=== PATIENT | female | born 1940 | race Caucasian/White ===

== ENCOUNTER 2018-10-22 06:30 | Inpatient (IN) ==
[2018-10-22] MEDS ORDERED: *HR* HYDROcodone/Acet 5/325 mg TABLET PO PRN (10:51)
[2018-10-22] MEDS ORDERED: Naloxone 0.4 MG/ML INJ IVP PRN (10:51)
[2018-10-22] MEDS ORDERED: Acetaminophen 325 MG TABLET PO PRN (10:51)
[2018-10-22] MEDS ORDERED: Ondansetron 4 MG/2 ML VIAL IVP PRN (10:51)
[2018-10-22] MEDS ORDERED: 0.9 % Sodium Chloride 1,000 ML IVC SCH (11:30)
[2018-10-22] MEDS ORDERED: *HR* Labetalol 20 MG/4 ML SYRINGE IVP PRN (11:36)
[2018-10-22 13:23] LABS: Basophils # 0.1 K/mcL (0.0-0.2); Basophils % 0.4 %; Eosinophils % 0.1 %; Hematocrit 32.8 % (35.3-44.9); Hemoglobin 10.3 g/dL (11.5-15.4); Immature Granulocytes % 0.5 % (0-4); Lymphocytes # 1.9 K/mcL (0.6-4.6); Lymphocytes % 13.7 %; Mean Corpuscular HGB Conc 31.4 g/dL (31.6-35.5); Mean Corpuscular Hemoglobin 33.3 pg (28.0-33.3); Mean Corpuscular Volume 106.1 fL (83.0-100.0); Mean Platelet Volume 9.8 fL (9.4-12.4); Monocytes # 0.9 K/mcL (0.0-1.3); Monocytes % 6.5 %; Neutrophils # 10.7 K/mcL (1.6-8.9); Platelet Count 270 K/mcL (140-400); Red Blood Count 3.09 M/mcL (3.82-4.97); Red Cell Distribution Width 14.8 % (11.5-14.5); Segmented Neutrophils % 78.8 %; White Blood Count 13.5 K/mcL (4.3-11.1)
[2018-10-22 13:30] LABS: Prothrombin Time 10.9 Seconds (9.4-12.1)
[2018-10-22 13:42] LABS: Calcium 8.4 mg/dL (8.6-10.3); Potassium 4.5 mEq/L (3.5-5.1)
[2018-10-22] MEDS ORDERED: *HR* Dextrose 50 % in Water (Syg) 50 ML SYRINGE IVP PRN (13:51)
[2018-10-22] MEDS ORDERED: D5% in Water 1,000 ML IVC PRN (13:51)
[2018-10-22] MEDS ORDERED: Dextrose Gel 15 GM/37.5 ML TUBE PO PRN ×2 (13:51)
[2018-10-22] MEDS: Insulin LISPRO 300 UNITS/3 ML VIAL SQ SCH (16:51)
[2018-10-22] MEDS: *HR* Heparin 5,000 UNIT/ML VIAL SQ SCH (17:00)
[2018-10-22] MEDS ORDERED: Insulin LISPRO 300 UNITS/3 ML VIAL SQ SCH (21:00)
[2018-10-22] MEDS: Gabapentin 300 MG CAPSULE PO SCH (21:03)
[2018-10-22] MEDS: cloNIDine HCl 0.1 MG TABLET PO SCH (21:10)
[2018-10-23 02:29] LABS: Basophils # 0.1 K/mcL (0.0-0.2); Basophils % 0.5 %; Calcium 8.2 mg/dL (8.6-10.3); Eosinophils # 0.1 K/mcL (0.0-0.6); Eosinophils % 0.7 %; Hematocrit 30.3 % (35.3-44.9); Hemoglobin 9.7 g/dL (11.5-15.4); Immature Granulocytes % 0.4 % (0-4); Lymphocytes % 16.3 %; Magnesium 1.6 mg/dL (1.6-2.6); Mean Corpuscular Hemoglobin 33.3 pg (28.0-33.3); Mean Corpuscular Volume 104.1 fL (83.0-100.0); Mean Platelet Volume 10.5 fL (9.4-12.4); Monocytes # 0.8 K/mcL (0.0-1.3); Monocytes % 6.9 %; Neutrophils # 9.1 K/mcL (1.6-8.9); Platelet Count 274 K/mcL (140-400); Potassium 4.2 mEq/L (3.5-5.1); Red Blood Count 2.91 M/mcL (3.82-4.97); Red Cell Distribution Width 14.7 % (11.5-14.5); Segmented Neutrophils % 75.2 %; White Blood Count 12.1 K/mcL (4.3-11.1)
[2018-10-23] MEDS: *HR* Heparin 5,000 UNIT/ML VIAL SQ SCH (06:13)
[2018-10-23] MEDS ORDERED: Ondansetron 4 MG/2 ML VIAL ONE (07:11)
[2018-10-23] MEDS ORDERED: Lidocaine -MPF 4% 5 ML AMPUL ONE (07:11)
[2018-10-23] MEDS ORDERED: *HR* Succinylcholine 200 MG/10 ML VIAL IVP ONE (07:11)
[2018-10-23] MEDS ORDERED: Lidocaine -MPF 2% 2 ML VIAL ONE (07:11)
[2018-10-23] MEDS ORDERED: Dexamethasone 4 MG/ML VIAL ONE (07:11)
[2018-10-23] MEDS ORDERED: *HR* FentaNYL (PF) 100 MCG/2 ML VIAL ONE (07:13)
[2018-10-23] MEDS ORDERED: *HR* Propofol 200 MG/20 ML VIAL IVP ONE (07:13)
[2018-10-23] MEDS ORDERED: Acetaminophen IV 1,000 MG/100 ML INFUS..BTL ONE (07:22)
[2018-10-23] MEDS ORDERED: Famotidine 20 MG/2 ML VIAL ONE (07:22)
[2018-10-23] MEDS: Gabapentin 300 MG CAPSULE PO SCH ×2 (07:43→21:44)
[2018-10-23] MEDS ORDERED: Ringers Solution, Lactated 1,000 ML ONE ×2 (07:55→11:13)
[2018-10-23] MEDS ORDERED: Albuterol 2.5 MG/3 ML NEBULIZER IH ONE ×2 (08:21→11:36)
[2018-10-23] MEDS ORDERED: Albuterol 2.5 MG/3 ML NEBULIZER ONE (08:23)
[2018-10-23] MEDS ORDERED: Lidocaine -MPF 1% 5 ML AMPUL ONE (08:24)
[2018-10-23] MEDS ORDERED: Clindamycin 900 MG/50 ML 900 MG/50 ML IV.SOLN IVPB ONE (08:52)
[2018-10-23] MEDS ORDERED: Ondansetron 4 MG/2 ML VIAL IVP ONE (10:01)
[2018-10-23] MEDS ORDERED: Morphine Sulfate 2 MG/ML SYRINGE IVP PRN (10:01)
[2018-10-23] MEDS ORDERED: Dextrose Gel 15 GM/37.5 ML TUBE PO PRN ×2 (11:36)
[2018-10-23] MEDS ORDERED: *HR* Labetalol 20 MG/4 ML SYRINGE IVP PRN (11:36)
[2018-10-23] MEDS ORDERED: Ondansetron 4 MG/2 ML VIAL IVP PRN (11:36)
[2018-10-23] MEDS ORDERED: Naloxone 0.4 MG/ML INJ IVP PRN (11:36)
[2018-10-23] MEDS ORDERED: 0.9 % Sodium Chloride 1,000 ML IVC SCH (11:36)
[2018-10-23] MEDS ORDERED: *HR* Dextrose 50 % in Water (Syg) 50 ML SYRINGE IVP PRN (11:36)
[2018-10-23] MEDS ORDERED: D5% in Water 1,000 ML IVC PRN (11:36)
[2018-10-23] MEDS ORDERED: Acetaminophen 325 MG TABLET PO PRN (11:36)
[2018-10-23] MEDS: Clindamycin 900 MG/50 ML 900 MG/50 ML IV.SOLN IVPB SCH ×2 (17:05→23:29)
[2018-10-23] MEDS: Insulin LISPRO 300 UNITS/3 ML VIAL SQ SCH ×3 (17:05→21:44)
[2018-10-23] MEDS ORDERED: Ipratropium/Albuterol Neb 3 ML IH PRN (18:15)
[2018-10-23] MEDS: cloNIDine HCl 0.1 MG TABLET PO SCH ×2 (19:17→21:44)
[2018-10-23] MEDS: *HR* HYDROcodone/Acet 5/325 mg TABLET PO PRN (21:44)
[2018-10-24 07:50] LABS: Basophils % 0.1 %; Hematocrit 25.7 % (35.3-44.9); Hemoglobin 8.2 g/dL (11.5-15.4); Immature Granulocytes % 0.5 % (0-4); Lymphocytes # 0.9 K/mcL (0.6-4.6); Lymphocytes % 5.9 %; Mean Corpuscular HGB Conc 31.9 g/dL (31.6-35.5); Mean Corpuscular Hemoglobin 32.8 pg (28.0-33.3); Mean Corpuscular Volume 102.8 fL (83.0-100.0); Mean Platelet Volume 10.5 fL (9.4-12.4); Monocytes # 0.9 K/mcL (0.0-1.3); Monocytes % 6.1 %; Neutrophils # 13.3 K/mcL (1.6-8.9); Platelet Count 219 K/mcL (140-400); Red Cell Distribution Width 14.6 % (11.5-14.5); Segmented Neutrophils % 87.4 %; White Blood Count 15.2 K/mcL (4.3-11.1)
[2018-10-24 08:03] LABS: Potassium 4.2 mEq/L (3.5-5.1)
[2018-10-24] MEDS: Insulin LISPRO 300 UNITS/3 ML VIAL SQ SCH ×4 (08:25→20:45)
[2018-10-24] MEDS: Gabapentin 300 MG CAPSULE PO SCH ×2 (09:40→20:44)
[2018-10-24] MEDS: cloNIDine HCl 0.1 MG TABLET PO SCH ×2 (09:40→20:44)
[2018-10-24] MEDS: *HR* Enoxaparin 30 MG/0.3 ML SYRINGE SQ SCH (09:41)
[2018-10-24] MEDS: *HR* HYDROcodone/Acet 5/325 mg TABLET PO PRN ×2 (11:30→19:34)
[2018-10-25 05:18] LABS: Basophils % 0.1 %; Eosinophils # 0.1 K/mcL (0.0-0.6); Eosinophils % 0.4 %; Hematocrit 23.8 % (35.3-44.9); Hemoglobin 7.5 g/dL (11.5-15.4); Immature Granulocytes % 0.7 % (0-4); Lymphocytes # 2.5 K/mcL (0.6-4.6); Lymphocytes % 17.7 %; Mean Corpuscular HGB Conc 31.5 g/dL (31.6-35.5); Mean Corpuscular Hemoglobin 32.9 pg (28.0-33.3); Mean Corpuscular Volume 104.4 fL (83.0-100.0); Mean Platelet Volume 10.6 fL (9.4-12.4); Neutrophils # 10.4 K/mcL (1.6-8.9); Platelet Count 209 K/mcL (140-400); Red Blood Count 2.28 M/mcL (3.82-4.97); Segmented Neutrophils % 74.1 %; White Blood Count 14.1 K/mcL (4.3-11.1)
[2018-10-25] MEDS: Insulin LISPRO 300 UNITS/3 ML VIAL SQ SCH ×2 (07:55→11:15)
[2018-10-25] MEDS: Gabapentin 300 MG CAPSULE PO SCH (09:59)
[2018-10-25] MEDS: *HR* Enoxaparin 30 MG/0.3 ML SYRINGE SQ SCH (09:59)
[2018-10-25] MEDS: cloNIDine HCl 0.1 MG TABLET PO SCH (09:59)
[2018-10-25] MEDS: *HR* HYDROcodone/Acet 5/325 mg TABLET PO PRN (10:52)
[2018-10-25 12:46] VITALS: BP 117/72
== END 2018-10-25 16:17 | DRG 480 ==
LOC: 3NENU → SUATTDRO 11:57
PROVIDERS: ADMIT Internal Medicine; ATTEND Internal Medicine

== ENCOUNTER 2019-12-11 15:45 | Inpatient (IN) ==
[2019-12-11] MEDS ORDERED: Morphine Sulfate 2 MG/ML SYRINGE IVP PRN (19:57)
[2019-12-11] MEDS ORDERED: Ondansetron 4 MG/2 ML VIAL IVP PRN (20:37)
[2019-12-11] MEDS ORDERED: Naloxone 0.4 MG/ML INJ IVP PRN (20:37)
[2019-12-11] MEDS ORDERED: D5% in Water 1,000 ML IVC PRN (20:41)
[2019-12-11] MEDS ORDERED: Dextrose Gel 15 GM/37.5 ML TUBE PO PRN ×2 (20:41)
[2019-12-11] MEDS ORDERED: *HR* Dextrose 50 % in Water (Vial) 50 ML VIAL IVP PRN (20:41)
[2019-12-12] MEDS: Insulin LISPRO 300 UNITS/3 ML VIAL SQ SCH ×4 (00:38→18:02)
[2019-12-12 01:49] LABS: Hematocrit 34.5 % (35.3-44.9); Hemoglobin 10.8 g/dL (11.5-15.4); Mean Corpuscular HGB Conc 31.3 g/dL (31.6-35.5); Mean Corpuscular Hemoglobin 31.5 pg (28.0-33.3); Mean Corpuscular Volume 100.6 fL (83.0-100.0); Mean Platelet Volume 10.5 fL (9.4-12.4); Platelet Count 284 K/mcL (140-400); Red Blood Count 3.43 M/mcL (3.82-4.97); Red Cell Distribution Width 13.8 % (11.5-14.5); White Blood Count 14.4 K/mcL (4.3-11.1)
[2019-12-12 02:00] LABS: Prothrombin Time 11.5 Seconds (9.4-12.1)
[2019-12-12 02:03] LABS: Activated Partial Thrombo Time 28.7 Seconds (26.0-36.0)
[2019-12-12 02:05] LABS: Calcium 8.8 mg/dL (8.6-10.3); Potassium 3.9 mEq/L (3.5-5.1)
[2019-12-12] MEDS: Morphine Sulfate 2 MG/ML SYRINGE IVP PRN ×2 (04:15→08:08)
[2019-12-12] MEDS: cilostazoL 100 MG TABLET PO SCH ×2 (08:09→09:00)
[2019-12-12] MEDS: cloNIDine HCL 0.1 MG TABLET PO SCH ×3 (08:09→20:06)
[2019-12-12] MEDS: amLODIPine 5 MG TABLET PO SCH ×2 (08:09→09:00)
[2019-12-12 08:21] LABS: Estimated Average Glucose 146 mg/dl
[2019-12-13] MEDS: Insulin LISPRO 300 UNITS/3 ML VIAL SQ SCH ×4 (00:07→22:51)
[2019-12-13] MEDS ORDERED: Acetaminophen IV 500 MG/50 ML INFUS..BTL IVPB ONE (01:00)
[2019-12-13 05:18] LABS: Basophils # 0.1 K/mcL (0.0-0.2); Basophils % 0.3 %; Eosinophils # 0.1 K/mcL (0.0-0.6); Eosinophils % 0.3 %; Hematocrit 34.6 % (35.3-44.9); Hemoglobin 10.7 g/dL (11.5-15.4); Immature Granulocytes % 0.5 % (0-4); Lymphocytes # 1.6 K/mcL (0.6-4.6); Lymphocytes % 10.1 %; Mean Corpuscular HGB Conc 30.9 g/dL (31.6-35.5); Mean Corpuscular Hemoglobin 31.2 pg (28.0-33.3); Mean Corpuscular Volume 100.9 fL (83.0-100.0); Mean Platelet Volume 10.8 fL (9.4-12.4); Monocytes # 1.1 K/mcL (0.0-1.3); Monocytes % 7.2 %; Neutrophils # 12.8 K/mcL (1.6-8.9); Platelet Count 257 K/mcL (140-400); Red Blood Count 3.43 M/mcL (3.82-4.97); Red Cell Distribution Width 13.8 % (11.5-14.5); Segmented Neutrophils % 81.6 %; White Blood Count 15.6 K/mcL (4.3-11.1)
[2019-12-13 05:37] LABS: Calcium 9.4 mg/dL (8.6-10.3); Potassium 3.9 mEq/L (3.5-5.1)
[2019-12-13] MEDS ORDERED: *HR* Metformin 500 MG TABLET PO SCH (08:00)
[2019-12-13] MEDS: cloNIDine HCL 0.1 MG TABLET PO SCH ×2 (08:29→22:19)
[2019-12-13] MEDS: amLODIPine 5 MG TABLET PO SCH (08:29)
[2019-12-13] MEDS: cilostazoL 100 MG TABLET PO SCH (08:30)
[2019-12-13 13:10] LABS: Albumin 3.4 g/dL (3.5-5.7); Bilirubin,Direct 0.2 mg/dL (0.0-0.2); Bilirubin,Indirect 0.5 mg/dL (0.0-1.0); Bilirubin,Total 0.7 mg/dL (0.3-1.0); Globulin 3.5 g/dL (2.4-3.5); Total Protein 6.9 g/dL (6.4-8.9)
[2019-12-13] MEDS ORDERED: *HR* HYDROmorphone (PF) 1 MG/ML SYRINGE IVP ONE ×2 (14:11→19:22)
[2019-12-13] MEDS ORDERED: *HR* Propofol 200 MG/20 ML VIAL IVP ONE (16:38)
[2019-12-13] MEDS ORDERED: *HR* FentaNYL (PF) 100 MCG/2 ML VIAL ONE (16:39)
[2019-12-13] MEDS ORDERED: Lidocaine -MPF 2% 2 ML VIAL ONE (16:40)
[2019-12-13] MEDS ORDERED: Ondansetron 4 MG/2 ML VIAL ONE (16:40)
[2019-12-13] MEDS ORDERED: Dexamethasone 4 MG/ML VIAL ONE (16:40)
[2019-12-13] MEDS ORDERED: Clindamycin 900 MG/50 ML 900 MG/50 ML IV.SOLN IVPB ONE ×2 (16:52→16:53)
[2019-12-13] MEDS ORDERED: *HR* Promethazine 25 MG/ML VIAL IVP PRN ×2 (16:55→19:22)
[2019-12-13] MEDS ORDERED: *HR* Labetalol 20 MG/4 ML SYRINGE IVP PRN ×2 (16:55→19:22)
[2019-12-13] MEDS ORDERED: Ondansetron 4 MG/2 ML VIAL IVP PRN ×3 (16:55→19:22)
[2019-12-13] MEDS ORDERED: *HR* PHENYLEPHRINE 1,000 MCG/10 ML SYRINGE IVP ONE (17:17)
[2019-12-13] MEDS: *HR* HYDROmorphone PF 0.5 MG/0.5 ML SYRINGE IVP PRN ×2 (18:26→18:36)
[2019-12-13] MEDS ORDERED: D5% in Water 1,000 ML IVC PRN (19:22)
[2019-12-13] MEDS ORDERED: *HR* HYDROmorphone PF 0.5 MG/0.5 ML SYRINGE IVP PRN (19:22)
[2019-12-13] MEDS ORDERED: Dextrose Gel 15 GM/37.5 ML TUBE PO PRN ×2 (19:22)
[2019-12-13] MEDS ORDERED: Naloxone 0.4 MG/ML INJ IVP PRN (19:22)
[2019-12-13] MEDS ORDERED: *HR* Dextrose 50 % in Water (Vial) 50 ML VIAL IVP PRN (19:22)
[2019-12-13] MEDS ORDERED: *HR* Metoprolol 5 MG/5 ML VIAL IVP ONE (22:10)
[2019-12-14] MEDS: Clindamycin 900 MG/50 ML 900 MG/50 ML IV.SOLN IVPB SCH ×2 (00:58→09:36)
[2019-12-14] MEDS ORDERED: Acetaminophen IV 500 MG/50 ML INFUS..BTL IVPB ONE (01:09)
[2019-12-14] MEDS: Insulin LISPRO 300 UNITS/3 ML VIAL SQ SCH ×4 (01:11→19:19)
[2019-12-14] MEDS ORDERED: Levalbuterol Neb 1.25 MG/3 ML IH PRN (01:26)
[2019-12-14 06:25] LABS: Basophils % 0.1 %; Hematocrit 30.5 % (35.3-44.9); Hemoglobin 9.5 g/dL (11.5-15.4); Immature Granulocytes % 0.6 % (0-4); Lymphocytes # 0.6 K/mcL (0.6-4.6); Lymphocytes % 3.3 %; Mean Corpuscular HGB Conc 31.1 g/dL (31.6-35.5); Mean Corpuscular Hemoglobin 31.8 pg (28.0-33.3); Mean Platelet Volume 11.2 fL (9.4-12.4); Monocytes # 0.7 K/mcL (0.0-1.3); Neutrophils # 16.6 K/mcL (1.6-8.9); Platelet Count 239 K/mcL (140-400); Red Blood Count 2.99 M/mcL (3.82-4.97); Red Cell Distribution Width 13.9 % (11.5-14.5)
[2019-12-14 06:36] LABS: Albumin 3.3 g/dL (3.5-5.7); Albumin/Globulin Ratio 0.9 (1.1-2.2); Bilirubin,Total 0.6 mg/dL (0.3-1.0); Calcium 9.1 mg/dL (8.6-10.3); Globulin 3.5 g/dL (2.4-3.5); Potassium 3.7 mEq/L (3.5-5.1); Total Protein 6.8 g/dL (6.4-8.9)
[2019-12-14] MEDS: Aspirin Enteric Coated 325 MG Tablet PO SCH (09:33)
[2019-12-14] MEDS: cloNIDine HCL 0.1 MG TABLET PO SCH ×2 (09:34→19:52)
[2019-12-14] MEDS: amLODIPine 5 MG TABLET PO SCH (09:34)
[2019-12-14] MEDS: cilostazoL 100 MG TABLET PO SCH (09:35)
[2019-12-14 11:16] LABS: Bacteria,Urine Few per hpf (None-Few); Bilirubin,Urine Negative (Negative); Blood,Urine Moderate (Negative); Clarity,Urine Clear (Clear); Color,Urine Yellow (Yellow); Glucose,Urine (UA) Normal (Normal); Hyaline Casts,Urine Few per lpf (None Seen); Ketones,Urine Negative (Negative); Leukocyte Esterase,Urine Trace (Negative); Mucus,Urine Few per lpf (None-Few); Nitrite,Urine Negative (Negative); PH,Urine 5.5 pH Units (5.0-8.0); Protein,Urine 70 mg/dL (Neg-Trace); RBC,Urine 0-3 per hpf (0-3); Specific Gravity,Urine 1.021 (1.010-1.025); Urobilinogen,Urine Normal (Normal)
[2019-12-14] MEDS: 0.9 % Sodium Chloride 1,000 ML IVC SCH (14:46)
[2019-12-14] MEDS: Acetaminophen IV 1,000 MG/100 ML INFUS..BTL IVPB SCH ×2 (14:47→21:07)
[2019-12-14] MEDS ORDERED: levoFLOXacin 750 MG/150 ML 750 MG/150 ML BAG IVPB SCH (16:00)
[2019-12-14] MEDS: Nicotine 14 MG PATCH.TD24 TD SCH (19:34)
[2019-12-14] MEDS: MetroNIDAZOLE 500 MG/100 ML 500 MG/100 ML BAG IVPB SCH ×2 (19:34→23:45)
[2019-12-15] MEDS: Insulin LISPRO 300 UNITS/3 ML VIAL SQ SCH ×4 (01:45→19:22)
[2019-12-15] MEDS: Acetaminophen IV 1,000 MG/100 ML INFUS..BTL IVPB SCH ×3 (04:14→21:09)
[2019-12-15] MEDS: 0.9 % Sodium Chloride 1,000 ML IVC SCH (04:18)
[2019-12-15 05:59] LABS: Basophils % 0.1 %; Hematocrit 28.9 % (35.3-44.9); Hemoglobin 8.8 g/dL (11.5-15.4); Immature Granulocytes % 1.1 % (0-4); Lymphocytes # 1.1 K/mcL (0.6-4.6); Lymphocytes % 6.7 %; Mean Corpuscular HGB Conc 30.4 g/dL (31.6-35.5); Mean Corpuscular Hemoglobin 31.1 pg (28.0-33.3); Mean Corpuscular Volume 102.1 fL (83.0-100.0); Mean Platelet Volume 11.1 fL (9.4-12.4); Neutrophils # 13.6 K/mcL (1.6-8.9); Nucleated Red Blood Cells 0.1 /100 WBC (0); Platelet Count 234 K/mcL (140-400); Red Blood Count 2.83 M/mcL (3.82-4.97); Red Cell Distribution Width 14.3 % (11.5-14.5); Segmented Neutrophils % 86.1 %; White Blood Count 15.8 K/mcL (4.3-11.1)
[2019-12-15 06:20] LABS: BUN/Creatinine Ratio 32 (6-26); Blood Urea Nitrogen 33 mg/dL (8-23); Calcium 8.6 mg/dL (8.6-10.3); Carbon Dioxide 24 mEq/L (23-29); Chloride 113 mEq/L (98-107); Glucose 110 mg/dL (70-105); Osmolality,Calculated 310 (280-300); Potassium 3.5 mEq/L (3.5-5.1); Sodium 146 mEq/L (136-145); eGFR For African Americans > 60 (> 60); eGFR For Non-African Americans 52 (> 60)
[2019-12-15] MEDS: Aspirin Enteric Coated 325 MG Tablet PO SCH (09:54)
[2019-12-15] MEDS: Nicotine 14 MG PATCH.TD24 TD SCH (09:54)
[2019-12-15] MEDS: MetroNIDAZOLE 500 MG/100 ML 500 MG/100 ML BAG IVPB SCH ×3 (09:54→23:39)
[2019-12-15] MEDS: amLODIPine 5 MG TABLET PO SCH (09:55)
[2019-12-15] MEDS: cloNIDine HCL 0.1 MG TABLET PO SCH ×2 (09:55→19:36)
[2019-12-15] MEDS: cilostazoL 100 MG TABLET PO SCH (09:55)
[2019-12-15] MEDS ORDERED: D5% in 0.45% NACL w KCl 20 MEQ/1,000 ML MLS IVC SCH (10:30)
[2019-12-15] MEDS ORDERED: Thiamine (B-1) 100 MG in 0.9 % Sodium Chloride 50 ML IVPB STA (12:19)
[2019-12-15 13:29] LABS: Folate 4.9 ng/mL (3.0-16.0)
[2019-12-15 15:15] LABS: Thyroid Stimulating Hormone 1.446 mcIU/mL (0.340-5.600)
[2019-12-15] MEDS ORDERED: levETIRAcetam 1,000 MG in 0.9 % Sodium Chloride 100 ML IVPB ONE (17:26)
[2019-12-15] MEDS: Acyclovir 500 MG in D5% in Water 250 ML IVPB SCH (19:21)
[2019-12-15 19:59] LABS: Appearance,CSF Clear (Clear)
[2019-12-15 20:06] LABS: Red Blood Cell,CSF < 2000 RBC/mcL
[2019-12-15 20:11] LABS: Glucose,CSF 81 mg/dL (40-70); Total Protein,CSF 44 mg/dL (15-45)
[2019-12-15] MEDS ORDERED: QUEtiapine Fumarate 25 MG TABLET PO SCH (21:00)
[2019-12-15] MEDS ORDERED: *HR* Metoprolol 5 MG/5 ML VIAL IVP ONE ×3 (23:53→23:56)
[2019-12-16] MEDS: Insulin LISPRO 300 UNITS/3 ML VIAL SQ SCH ×5 (00:15→23:36)
[2019-12-16 00:50] LABS: Basophils % 0.1 %; Eosinophils % 0.2 %; Hematocrit 29.1 % (35.3-44.9); Hemoglobin 8.9 g/dL (11.5-15.4); Immature Granulocytes % 0.6 % (0-4); Lymphocytes # 1.8 K/mcL (0.6-4.6); Lymphocytes % 13.2 %; Mean Corpuscular HGB Conc 30.6 g/dL (31.6-35.5); Mean Corpuscular Hemoglobin 31.9 pg (28.0-33.3); Mean Corpuscular Volume 104.3 fL (83.0-100.0); Mean Platelet Volume 11.1 fL (9.4-12.4); Monocytes % 6.8 %; Platelet Count 224 K/mcL (140-400); Red Blood Count 2.79 M/mcL (3.82-4.97); Red Cell Distribution Width 14.4 % (11.5-14.5); Segmented Neutrophils % 79.1 %
[2019-12-16] MEDS: DilTIAZem 50 MG/50 ML IV.SOLN IVC SCH ×4 (00:58→16:07)
[2019-12-16 01:08] LABS: BUN/Creatinine Ratio 29 (6-26); Blood Urea Nitrogen 30 mg/dL (8-23); Calcium 8.1 mg/dL (8.6-10.3); Carbon Dioxide 22 mEq/L (23-29); Chloride 115 mEq/L (98-107); Glucose 116 mg/dL (70-105); Osmolality,Calculated 311 (280-300); Potassium 3.4 mEq/L (3.5-5.1); Sodium 147 mEq/L (136-145); eGFR For African Americans > 60 (> 60); eGFR For Non-African Americans 51 (> 60)
[2019-12-16 01:10] LABS: Magnesium 1.7 mg/dL (1.6-2.6); Phosphorous 2.3 mg/dL (2.7-4.5)
[2019-12-16] MEDS: Acyclovir 500 MG in D5% in Water 250 ML IVPB SCH ×3 (03:23→18:28)
[2019-12-16] MEDS: Acetaminophen IV 1,000 MG/100 ML INFUS..BTL IVPB SCH ×3 (04:47→19:41)
[2019-12-16] MEDS ORDERED: Perflutren Lipid Microsphere 1.3 ML in 0.9 % Sodium Chloride 8.7 ML IVP PRN (05:21)
[2019-12-16] MEDS: Nicotine 14 MG PATCH.TD24 TD SCH (08:38)
[2019-12-16] MEDS: MetroNIDAZOLE 500 MG/100 ML 500 MG/100 ML BAG IVPB SCH ×2 (08:38→15:56)
[2019-12-16] MEDS: cloNIDine HCL 0.1 MG TABLET PO SCH ×2 (08:49→19:40)
[2019-12-16] MEDS: amLODIPine 5 MG TABLET PO SCH (08:49)
[2019-12-16] MEDS: Aspirin Enteric Coated 325 MG Tablet PO SCH (08:49)
[2019-12-16] MEDS: Thiamine (B-1) 100 MG in 0.9 % Sodium Chloride 50 ML IVPB SCH (09:25)
[2019-12-16] MEDS ORDERED: *HR* Metoprolol 5 MG/5 ML VIAL IVP SCH (11:36)
[2019-12-16] MEDS ORDERED: Cyanocobalamin (B-12) 1,000 MCG/ML VIAL IM ONE (11:51)
[2019-12-16] MEDS: levoFLOXacin 750 MG/150 ML 750 MG/150 ML BAG IVPB SCH (18:27)
[2019-12-16 19:46] LABS: Basophils % 0.2 %; Eosinophils # 0.1 K/mcL (0.0-0.6); Eosinophils % 1.2 %; Hematocrit 26.8 % (35.3-44.9); Hemoglobin 8.2 g/dL (11.5-15.4); Immature Granulocytes % 0.5 % (0-4); Lymphocytes # 1.8 K/mcL (0.6-4.6); Lymphocytes % 15.7 %; Mean Corpuscular HGB Conc 30.6 g/dL (31.6-35.5); Mean Corpuscular Hemoglobin 31.2 pg (28.0-33.3); Mean Corpuscular Volume 101.9 fL (83.0-100.0); Mean Platelet Volume 10.6 fL (9.4-12.4); Monocytes # 0.7 K/mcL (0.0-1.3); Neutrophils # 8.9 K/mcL (1.6-8.9); Platelet Count 196 K/mcL (140-400); Red Blood Count 2.63 M/mcL (3.82-4.97); Red Cell Distribution Width 14.3 % (11.5-14.5); Segmented Neutrophils % 76.4 %; White Blood Count 11.6 K/mcL (4.3-11.1)
[2019-12-16] MEDS: levETIRAcetam 750 MG in 0.9 % Sodium Chloride 100 ML IVPB SCH (21:59)
[2019-12-17] MEDS: MetroNIDAZOLE 500 MG/100 ML 500 MG/100 ML BAG IVPB SCH ×4 (00:39→23:55)
[2019-12-17] MEDS: Acyclovir 500 MG in D5% in Water 250 ML IVPB SCH ×2 (02:44→10:06)
[2019-12-17 03:19] LABS: Hematocrit 29.2 % (35.3-44.9); Hemoglobin 8.8 g/dL (11.5-15.4); Mean Corpuscular HGB Conc 30.1 g/dL (31.6-35.5); Mean Corpuscular Hemoglobin 31.1 pg (28.0-33.3); Mean Corpuscular Volume 103.2 fL (83.0-100.0); Mean Platelet Volume 11.5 fL (9.4-12.4); Platelet Count 222 K/mcL (140-400); Red Blood Count 2.83 M/mcL (3.82-4.97); Red Cell Distribution Width 14.2 % (11.5-14.5); White Blood Count 12.5 K/mcL (4.3-11.1)
[2019-12-17 03:36] LABS: BUN/Creatinine Ratio 29 (6-26); Blood Urea Nitrogen 23 mg/dL (8-23); Carbon Dioxide 21 mEq/L (23-29); Chloride 114 mEq/L (98-107); Glucose 91 mg/dL (70-105); Osmolality,Calculated 301 (280-300); Potassium 3.2 mEq/L (3.5-5.1); Sodium 144 mEq/L (136-145); eGFR For African Americans > 60 (> 60); eGFR For Non-African Americans > 60 (> 60)
[2019-12-17] MEDS: Acetaminophen IV 1,000 MG/100 ML INFUS..BTL IVPB SCH ×3 (04:12→19:33)
[2019-12-17] MEDS: DilTIAZem 50 MG/50 ML IV.SOLN IVC SCH ×2 (04:13→13:25)
[2019-12-17] MEDS: Insulin LISPRO 300 UNITS/3 ML VIAL SQ SCH ×3 (05:30→17:44)
[2019-12-17] MEDS: Nicotine 14 MG PATCH.TD24 TD SCH (07:29)
[2019-12-17] MEDS: cloNIDine HCL 0.1 MG TABLET PO SCH ×2 (07:30→19:42)
[2019-12-17] MEDS: levETIRAcetam 750 MG in 0.9 % Sodium Chloride 100 ML IVPB SCH ×2 (07:30→20:16)
[2019-12-17] MEDS: Aspirin Enteric Coated 325 MG Tablet PO SCH (07:30)
[2019-12-17] MEDS: Thiamine (B-1) 100 MG in 0.9 % Sodium Chloride 50 ML IVPB SCH (07:35)
[2019-12-17] MEDS: amLODIPine 5 MG TABLET PO SCH (09:00)
[2019-12-17] MEDS ORDERED: *HR* Heparin 5,000 UNIT/ML VIAL IVP ONE ×2 (10:07→19:27)
[2019-12-17 10:49] LABS: INR 1.2; Prothrombin Time 13.8 Seconds (9.4-12.1)
[2019-12-17 10:51] LABS: Activated Partial Thrombo Time 28.5 Seconds (26.0-36.0)
[2019-12-17 10:52] LABS: Heparin anti-factor XA UFH < 0.04 IU/mL (0.30-0.70)
[2019-12-17] MEDS: Heparin 25,000UNIT/250ML 1/2NS 25,000 UNIT/250 ML IV.SOLN IVC SCH (11:39)
[2019-12-17] MEDS ORDERED: Potassium Chloride 20 MEQ, Lidocaine 1% 2 ML in 0.9 % Sodium Chloride 250 ML IVPB ONE (13:43)
[2019-12-17] MEDS ORDERED: Vancomycin 500 MG in 0.9 % Sodium Chloride Mini Bag 100 ML IVPB ONE (19:00)
[2019-12-17] MEDS ORDERED: *HR* Heparin 5,000 UNIT/ML VIAL IVP PRN (19:27)
[2019-12-17 20:09] LABS: Hematocrit 29.9 % (35.3-44.9); Mean Corpuscular HGB Conc 30.1 g/dL (31.6-35.5); Mean Corpuscular Volume 103.1 fL (83.0-100.0); Mean Platelet Volume 11.2 fL (9.4-12.4); Platelet Count 219 K/mcL (140-400); Red Cell Distribution Width 14.4 % (11.5-14.5); White Blood Count 13.5 K/mcL (4.3-11.1)
[2019-12-17 20:14] LABS: Heparin anti-factor XA UFH 0.23 IU/mL (0.30-0.70); INR 1.2; Prothrombin Time 13.4 Seconds (9.4-12.1)
[2019-12-17] MEDS: *HR* Heparin 5,000 UNIT/ML VIAL IVP PRN (20:15)
[2019-12-18] MEDS: Insulin LISPRO 300 UNITS/3 ML VIAL SQ SCH ×4 (00:02→17:54)
[2019-12-18 02:09] LABS: Basophils % 0.3 %; Eosinophils # 0.4 K/mcL (0.0-0.6); Eosinophils % 3.1 %; Hematocrit 29.2 % (35.3-44.9); Hemoglobin 9.1 g/dL (11.5-15.4); Immature Granulocytes % 0.8 % (0-4); Lymphocytes # 1.7 K/mcL (0.6-4.6); Lymphocytes % 14.6 %; Mean Corpuscular HGB Conc 30.3 g/dL (31.6-35.5); Mean Corpuscular HGB Conc 30.8 g/dL (31.6-35.5); Mean Corpuscular Hemoglobin 31.1 pg (28.0-33.3); Mean Corpuscular Hemoglobin 31.9 pg (28.0-33.3); Mean Corpuscular Volume 102.4 fL (83.0-100.0); Mean Corpuscular Volume 103.5 fL (83.0-100.0); Mean Platelet Volume 11.4 fL (9.4-12.4); Mean Platelet Volume 11.6 fL (9.4-12.4); Monocytes # 0.7 K/mcL (0.0-1.3); Monocytes % 5.5 %; Platelet Count 209 K/mcL (140-400); Platelet Count 212 K/mcL (140-400); Red Blood Count 2.82 M/mcL (3.82-4.97); Red Blood Count 2.93 M/mcL (3.82-4.97); Red Cell Distribution Width 14.3 % (11.5-14.5); Red Cell Distribution Width 14.4 % (11.5-14.5); Segmented Neutrophils % 75.7 %; White Blood Count 11.9 K/mcL (4.3-11.1); White Blood Count 12.2 K/mcL (4.3-11.1)
[2019-12-18 02:26] LABS: BUN/Creatinine Ratio 23 (6-26); Blood Urea Nitrogen 18 mg/dL (8-23); Carbon Dioxide 21 mEq/L (23-29); Chloride 114 mEq/L (98-107); Glucose 100 mg/dL (70-105); Potassium 3.5 mEq/L (3.5-5.1); Sodium 144 mEq/L (136-145); eGFR For African Americans > 60 (> 60); eGFR For Non-African Americans > 60 (> 60)
[2019-12-18 02:27] LABS: Calcium 8.1 mg/dL (8.6-10.3); Osmolality,Calculated 300 (280-300)
[2019-12-18] MEDS: Acetaminophen IV 1,000 MG/100 ML INFUS..BTL IVPB SCH ×3 (03:03→19:44)
[2019-12-18] MEDS: levETIRAcetam 750 MG in 0.9 % Sodium Chloride 100 ML IVPB SCH ×2 (08:53→21:57)
[2019-12-18] MEDS: MetroNIDAZOLE 500 MG/100 ML 500 MG/100 ML BAG IVPB SCH ×3 (08:54→23:43)
[2019-12-18] MEDS: Nicotine 14 MG PATCH.TD24 TD SCH (09:02)
[2019-12-18] MEDS: Aspirin Enteric Coated 325 MG Tablet PO SCH (09:02)
[2019-12-18] MEDS: cloNIDine HCL 0.1 MG TABLET PO SCH ×2 (09:03→20:54)
[2019-12-18] MEDS: amLODIPine 5 MG TABLET PO SCH (09:03)
[2019-12-18] MEDS: Heparin 25,000UNIT/250ML 1/2NS 25,000 UNIT/250 ML IV.SOLN IVC SCH (13:13)
[2019-12-18] MEDS: *HR* Metoprolol 5 MG/5 ML VIAL IVP SCH ×3 (13:14→23:44)
[2019-12-18] MEDS: DilTIAZem 50 MG/50 ML IV.SOLN IVC SCH (13:20)
[2019-12-18] MEDS: levoFLOXacin 750 MG/150 ML 750 MG/150 ML BAG IVPB SCH (17:55)
[2019-12-19] MEDS: Insulin LISPRO 300 UNITS/3 ML VIAL SQ SCH ×4 (00:07→16:53)
[2019-12-19 01:14] LABS: Basophils % 0.3 %; Eosinophils # 0.2 K/mcL (0.0-0.6); Eosinophils % 2.1 %; Hematocrit 28.8 % (35.3-44.9); Hemoglobin 8.8 g/dL (11.5-15.4); Immature Granulocytes % 1.4 % (0-4); Lymphocytes # 1.6 K/mcL (0.6-4.6); Lymphocytes % 14.8 %; Mean Corpuscular HGB Conc 30.6 g/dL (31.6-35.5); Mean Corpuscular Hemoglobin 30.9 pg (28.0-33.3); Mean Corpuscular Volume 101.1 fL (83.0-100.0); Mean Platelet Volume 11.7 fL (9.4-12.4); Monocytes # 0.6 K/mcL (0.0-1.3); Monocytes % 5.6 %; Neutrophils # 8.3 K/mcL (1.6-8.9); Nucleated Red Blood Cells 0.2 /100 WBC (0); Platelet Count 227 K/mcL (140-400); Red Blood Count 2.85 M/mcL (3.82-4.97); Red Cell Distribution Width 14.3 % (11.5-14.5); Segmented Neutrophils % 75.8 %; White Blood Count 10.9 K/mcL (4.3-11.1)
[2019-12-19 01:28] LABS: BUN/Creatinine Ratio 24 (6-26); Blood Urea Nitrogen 15 mg/dL (8-23); Calcium 7.9 mg/dL (8.6-10.3); Carbon Dioxide 19 mEq/L (23-29); Chloride 111 mEq/L (98-107); Glucose 89 mg/dL (70-105); Magnesium 1.6 mg/dL (1.6-2.6); Osmolality,Calculated 290 (280-300); Potassium 3.6 mEq/L (3.5-5.1); Sodium 140 mEq/L (136-145); eGFR For African Americans > 60 (> 60); eGFR For Non-African Americans > 60 (> 60)
[2019-12-19] MEDS: *HR* Heparin 5,000 UNIT/ML VIAL IVP PRN (01:48)
[2019-12-19] MEDS: Acetaminophen IV 1,000 MG/100 ML INFUS..BTL IVPB SCH ×2 (04:00→11:09)
[2019-12-19] MEDS: *HR* Metoprolol 5 MG/5 ML VIAL IVP SCH ×2 (05:51→11:09)
[2019-12-19] MEDS: levETIRAcetam 750 MG in 0.9 % Sodium Chloride 100 ML IVPB SCH ×2 (07:22→20:57)
[2019-12-19] MEDS: Nicotine 14 MG PATCH.TD24 TD SCH (07:23)
[2019-12-19] MEDS: Aspirin Enteric Coated 325 MG Tablet PO SCH (07:23)
[2019-12-19] MEDS: MetroNIDAZOLE 500 MG/100 ML 500 MG/100 ML BAG IVPB SCH ×2 (07:23→15:58)
[2019-12-19] MEDS: cloNIDine HCL 0.1 MG TABLET PO SCH ×2 (07:23→20:56)
[2019-12-19] MEDS: amLODIPine 5 MG TABLET PO SCH (07:24)
[2019-12-19] MEDS ORDERED: Magnesium Sulfate 1 GM/102 ML PIGGYBACK IVPB ONE (10:30)
[2019-12-19] MEDS ORDERED: Potassium Chloride Elixir 20 MEQ/15 ML UDC PO ONE (10:33)
[2019-12-19] MEDS: Heparin 25,000UNIT/250ML 1/2NS 25,000 UNIT/250 ML IV.SOLN IVC SCH ×2 (14:21→19:36)
[2019-12-19] MEDS ORDERED: Acetaminophen 325 MG TABLET PO PRN (14:24)
[2019-12-19] MEDS: DilTIAZem 50 MG/50 ML IV.SOLN IVC SCH (15:28)
[2019-12-20] MEDS: Insulin LISPRO 300 UNITS/3 ML VIAL SQ SCH ×4 (00:04→18:07)
[2019-12-20] MEDS: MetroNIDAZOLE 500 MG/100 ML 500 MG/100 ML BAG IVPB SCH ×3 (00:04→15:39)
[2019-12-20 01:32] LABS: Basophils % 0.3 %; Eosinophils # 0.3 K/mcL (0.0-0.6); Eosinophils % 2.6 %; Hematocrit 29.3 % (35.3-44.9); Hemoglobin 9.3 g/dL (11.5-15.4); Immature Granulocytes % 1.9 % (0-4); Lymphocytes # 2.4 K/mcL (0.6-4.6); Lymphocytes % 19.2 %; Mean Corpuscular HGB Conc 31.7 g/dL (31.6-35.5); Mean Corpuscular Hemoglobin 31.5 pg (28.0-33.3); Mean Corpuscular Volume 99.3 fL (83.0-100.0); Mean Platelet Volume 11.7 fL (9.4-12.4); Monocytes # 0.8 K/mcL (0.0-1.3); Monocytes % 6.7 %; Neutrophils # 8.5 K/mcL (1.6-8.9); Nucleated Red Blood Cells 0.2 /100 WBC (0); Platelet Count 233 K/mcL (140-400); Red Blood Count 2.95 M/mcL (3.82-4.97); Red Cell Distribution Width 14.4 % (11.5-14.5); Segmented Neutrophils % 69.3 %; White Blood Count 12.3 K/mcL (4.3-11.1)
[2019-12-20 01:51] LABS: Albumin 2.7 g/dL (3.5-5.7); BUN/Creatinine Ratio 23 (6-26); Blood Urea Nitrogen 18 mg/dL (8-23); Calcium 8.3 mg/dL (8.6-10.3); Carbon Dioxide 22 mEq/L (23-29); Chloride 110 mEq/L (98-107); Glucose 91 mg/dL (70-105); Osmolality,Calculated 287 (280-300); Potassium 3.8 mEq/L (3.5-5.1); Sodium 138 mEq/L (136-145); eGFR For African Americans > 60 (> 60); eGFR For Non-African Americans > 60 (> 60)
[2019-12-20] MEDS: cloNIDine HCL 0.1 MG TABLET PO SCH ×2 (07:16→20:24)
[2019-12-20] MEDS: amLODIPine 5 MG TABLET PO SCH (07:17)
[2019-12-20] MEDS: Nicotine 14 MG PATCH.TD24 TD SCH (07:17)
[2019-12-20] MEDS: levETIRAcetam 750 MG in 0.9 % Sodium Chloride 100 ML IVPB SCH (07:34)
[2019-12-20] MEDS: Apixaban 5 MG TABLET PO SCH ×2 (09:42→20:22)
[2019-12-20] MEDS: levETIRAcetam 250 MG TABLET PO SCH (20:23)
[2019-12-20] MEDS: levoFLOXacin 750 MG/150 ML 750 MG/150 ML BAG IVPB SCH (20:24)
[2019-12-21] MEDS: Insulin LISPRO 300 UNITS/3 ML VIAL SQ SCH ×3 (00:45→12:39)
[2019-12-21 05:45] LABS: Basophils % 0.3 %; Eosinophils # 0.3 K/mcL (0.0-0.6); Eosinophils % 2.3 %; Hematocrit 30.1 % (35.3-44.9); Hemoglobin 9.2 g/dL (11.5-15.4); Immature Granulocytes % 2.3 % (0-4); Lymphocytes # 1.7 K/mcL (0.6-4.6); Lymphocytes % 15.4 %; Mean Corpuscular HGB Conc 30.6 g/dL (31.6-35.5); Mean Corpuscular Hemoglobin 30.5 pg (28.0-33.3); Mean Corpuscular Volume 99.7 fL (83.0-100.0); Mean Platelet Volume 11.6 fL (9.4-12.4); Monocytes # 0.8 K/mcL (0.0-1.3); Monocytes % 7.3 %; Neutrophils # 7.9 K/mcL (1.6-8.9); Nucleated Red Blood Cells 0.2 /100 WBC (0); Platelet Count 239 K/mcL (140-400); Red Blood Count 3.02 M/mcL (3.82-4.97); Red Cell Distribution Width 14.6 % (11.5-14.5); Segmented Neutrophils % 72.4 %; White Blood Count 10.9 K/mcL (4.3-11.1)
[2019-12-21 05:59] LABS: BUN/Creatinine Ratio 23 (6-26); Blood Urea Nitrogen 17 mg/dL (8-23); Calcium 8.4 mg/dL (8.6-10.3); Carbon Dioxide 23 mEq/L (23-29); Chloride 107 mEq/L (98-107); Glucose 98 mg/dL (70-105); Osmolality,Calculated 284 (280-300); Sodium 136 mEq/L (136-145); eGFR For African Americans > 60 (> 60); eGFR For Non-African Americans > 60 (> 60)
[2019-12-21] MEDS: levETIRAcetam 250 MG TABLET PO SCH (09:34)
[2019-12-21] MEDS: amLODIPine 5 MG TABLET PO SCH (09:34)
[2019-12-21] MEDS: Nicotine 14 MG PATCH.TD24 TD SCH (09:34)
[2019-12-21] MEDS: Apixaban 5 MG TABLET PO SCH (09:34)
[2019-12-21] MEDS: cloNIDine HCL 0.1 MG TABLET PO SCH (09:34)
[2019-12-21 11:30] VITALS: BP 156/89
== END 2019-12-21 14:55 | DRG 480 ==
LOC: 3NENU → SUATTDRO 18:14 → 2NNU 12-16 02:12
PROVIDERS: ADMIT Internal Medicine; ATTEND Internal Medicine